=== PATIENT | male | born 2000 | race Caucasian/White ===

== ENCOUNTER 2020-10-02 15:56 | Emergency (ER) | payer OTHER ==
--- NOTE | 2020-10-02 16:20 | EDM.PDOC ---
ED HPI GENERAL MEDICAL PROBLEM - General Chief Complaint: ENT Problem Stated Complaint: BASEBALL TO THE FACE Time Seen by Provider: 10/02/20 16:08 Source of Information: Reports: Patient - History of Present Illness INITIAL COMMENTS - FREE TEXT/NARRATIVE: Benedicto is a 20 y/o male who comes to the ER with his field trainer after he was hit in the mouth with a baseball. He has a laceration to his lower lip. Note a couple loose teeth. No LOC, unsure of how fast the ball was going when it hit him. He is in a great deal of pain. Lower Lip Pain Score (Numeric/FACES): 6 - Related Data Allergies Allergy/AdvReac Type Severity Reaction Status Date / Time No Known Allergies Allergy Verified 10/02/20 16:10 Home Meds: Home Meds . [No Known Home Meds] 10/02/20 [History] Past Medical History - Past Health History Medical/Surgical History: Denies Medical/Surgical History Social & Family History - Tobacco Use Tobacco Use Status *Q: Unknown Ever Used Tobacco Review of Systems - Review of Systems Review Of Systems: See Below Constitutional: Reports: No Symptoms Eyes: Reports: No Symptoms Ears: Reports: No Symptoms Nose: Reports: No Symptoms Mouth/Throat: Reports: Lip Swelling, Loose Teeth, Pain, Other (Lip laceration) Respiratory: Reports: No Symptoms Cardiovascular: Reports: No Symptoms GI/Abdominal: Reports: No Symptoms Genitourinary: Reports: No Symptoms Musculoskeletal: Reports: No Symptoms Skin: Reports: No Symptoms Neurological: Reports: No Symptoms Psychiatric: Reports: No Symptoms ED EXAM, GENERAL - Physical Exam Exam: See Below Exam Limited By: No Limitations General Appearance: Alert, WD/WN, No Apparent Distress, Moderate Distress (Young adult male, holding his mouth and obviosuly in pain.) Eye Exam: Bilateral Eye: PERRL Ears: Normal External Exam, Hearing Grossly Normal Nose: Normal Inspection Throat/Mouth: Normal Oropharynx, Normal Voice, No Airway Compromise, Other (Note approximately 1.5 cm laceration to the lower lip and then a second laceration about 0.5ml next to it, mildly bleeding; blood oozing from between lower teeth. Lower teeth loose and painful to assess. Gumline is bruised.) Head: Atraumatic, Normocephalic Neck: Supple Respiratory/Chest: No Respiratory Distress GI/Abdominal: Soft (Female) Exam: Deferred Rectal (Female) Exam: Deferred Back Exam: Normal Inspection Extremities: Normal Inspection, Normal Range of Motion, Normal Capillary Refill Neurological: Alert, Oriented, CN II-XII Intact, Normal Cognition, No Motor/Sensory Deficits Psychiatric: Normal Affect, Anxious Skin Exam: Warm, Dry, Intact, Normal Color Lymphatic: No Adenopathy Course - Vital Signs Text/Narrative:: 1608 The patient was seen by the PHLEBOTOMIST ASSOCIATE. CT ordered. He was given Morphine 2mg IM for pain. The lower lip laceration was repaired. See Procedure Note. Procedure Note Laceration Repair Following verbal consent of the patient, risks, benefits, and alternatives were reviewed. The wounds on the lower lip were prepped with Saline. Lidocaine 2% with Epi-4 ml was used for local anesthesia. The 1.5cm laceration was repaired with 4-0 Vicryl using a running stitch in the deeper tissue then subcuticular to close the top layer of skin. 2 interrupted sutures of 4-0 Vicryl were used in the smaller laceration. No dressing was applied. Wound care instructions were reviewed. The patient tolerated the procedure well. Last Tetanus was reported as current in 2012. Tdap was not given today. 1650 CT results reviewed. No fx noted, but notes loosened maxillary incisor. Will have patient see his dentist for recheck. He was given discharge instructions and left the ER in stable condition. Last Recorded V/S: Last Vital Signs Temp 36.8 C 10/02/20 16:00 Pulse 90 10/02/20 16:00 Resp 20 10/02/20 16:00 BP 133/75 10/02/20 16:00 Pulse Ox 98 10/02/20 16:00 - Orders/Labs/Meds Orders: Active Orders 24 hr Category Date Time Status Max Facial Sinus wo Cont [CT] Stat Exams 10/02/20 16:12 Taken Meds: Medications Discontinued Medications Generic Name Dose Route Start Last Admin Trade Name Priscilla PRN Reason Stop Dose Admin Lidocaine/Epinephrine 20 ml 10/02/20 16:21 10/02/20 16:27 Xylocaine 2% With Epinephrine 1:100,000 INJECT 10/02/20 16:22 20 ml ONETIME ONE Administration Morphine Sulfate 2 mg 10/02/20 16:11 10/02/20 16:23 Morphine IM 10/02/20 16:12 2 mg ONETIME ONE Administration - Radiology Interpretation Free Text/Narrative:: CT Facial Bones WO=no facial fx noted, note some loosening of the maxillary incisor. (See final report) Departure - Departure Time of Disposition: 16:50 Disposition: Home, Self-Care 01 Condition: Good Clinical Impression: Injury while playing baseball, Loosening of tooth Facial trauma Qualifiers: Encounter type: initial encounter Qualified Code(s): S09.93XA - Unspecified injury of face, initial encounter Lip laceration Qualifiers: Encounter type: initial encounter Qualified Code(s): S01.511A - Laceration without foreign body of lip, initial encounter - Discharge Information Instructions: Mouth Laceration, [id number]-[facility]-[id number] Forms: ED Department Discharge Additional Instructions: -Ibuprofen 200mg 3 tablets oral every 6 hours as needed for pain -Acetaminophen 325mg 3 tablets oral every 6 hours as needed for pain -Gargle and spit warm salt water as needed. -Eat soft foods that are non-irritating. -Use ice packs to your mouth and chin region as needed. -The stitches do not need to be removed and will absorb in the next 2-3 weeks. -Watch for signs of infection and seek care at the clinic or ER if needed. -Follow up with you dentist in the next 24-[address] did not a loosened maxillary incisor. -Your Tetanus was not updated at today's visit Sepsis Event Note (ED) - Evaluation Sepsis Screening Result: No Definite Risk - Focused Exam Vital Signs: Vital Signs Temp Pulse Resp BP Pulse Ox 10/02/20 16:00 36.8 C 90 20 133/75 98 - My Orders Last 24 Hours: My Active Orders 10/02/20 16:12 Max Facial Sinus wo Cont [CT] Stat - Assessment/Plan Last 24 Hours: My Active Orders 10/02/20 16:12 Max Facial Sinus wo Cont [CT] Stat
[2020-10-02] MEDS: Morphine 2 MG/ML SYRINGE IM ONE (16:23)
[2020-10-02] MEDS: Lidocaine 2% with EPINEPHrine 1:100,000 20 ML MDV INJECT ONE (16:27)
--- NOTE | 2020-10-02 16:48 | CT ---
[id number] CT/CT Facial Bones WO IV Exam: CT Facial Bones WO IV Clinical Data: TRAUMA COMPARISON: NO PREVIOUS SIMILAR EXAM IS AVAILABLE FINDINGS: No facial fracture is seen. There appears to be some loosening of a maxillary incisor IMPRESSION: NO FACIAL FRACTURE Nader Spence MD 10/02/20 [id number] Thank you for allowing us to participate in the care of your patient.
== END 2020-10-02 17:05 | disposition home or self-care (01) ==
LOC: VM.ED 15:56 → EDSEX 15:56 → VM.ED 17:05
DX: S01.511A Laceration without foreign body of lip, initial encounter (principal); K08.89 Other specified disorders of teeth and supporting structures; W21.03XA Struck by baseball, initial encounter; Y93.64 Activity, baseball
CPT/HCPCS: 12011; 12051; 70486; 96372; 99283; 99283-25; J2270